=== PATIENT | female | born 1955 | race Caucasian/White ===

== ENCOUNTER → 2021-04-12 | Outpatient (CLI) | payer OTHER ==
[~2021-04-12] MED LIST: MULTI VITAMIN1 EACH PO; NOLVADEX20 MG PO; PROBIOTIC1 EAC7 PO
== END ==
LOC: LAB 07:50
PROVIDERS: ATTEND Student in an Organized Health Care Education/Training Program
DX: Z01.812 Encounter for preprocedural laboratory examination (principal); Z20.822 Contact with and (suspected) exposure to COVID-19

== ENCOUNTER → 2021-04-15 | Outpatient (CLI) | payer OTHER ==
[~2021-04-15] VITALS: Ht 165.1 cm; Wt 81.6 kg
--- NOTE | 2021-04-16 16:06 | PATH ---
[facility] [address] [place] [address] PATHOLOGY RPT PROCEDURE Name: MILA DICK Room #: REG NICK Sanches#: [id number] Admission: 04/15/21 Date of : 51 Discharge: Report #: [id number] Path Case #: [id number] [facility] Accession Number: [id number] . 01 Material submitted: . gastrointestinal site - RANDOM GASTRIC BIOPSY- R/O H. PYLORI . 01 Clinical history: . ESOPHAGOGASTRODUODENOSCOPY NAUSEA AND VOMITING, DIVERTICULOSIS GASTRITIS, HIATAL HERNIA . 02 Diagnosis: Gastric mucosa (random biopsies): - Mild chronic gastritis, mild activity, negative for dysplasia, negative for intestinal metaplasia, negative for Helicobacter-like organisms. (RITA:josep; 04/16/2021) QTP 04/16/2021 1231 Local . 02 Comment: IHC for H. pylori on A1: Negative (ISELAK:pit; 04/16/2021) . 02 Electronically signed: . Ramon Grimaldo MD, Pathologist NPI- [id number] . 01 Gross description: . The specimen is received in formalin, labeled "Mila Dick, random gastric BX rule out H. pylori ". Received are 5 segments of pale velasquez tissue ranging in size from 0.3 to 0.5 cm in maximum dimensions. The specimen is submitted entirely in cassette A1.([facility]; 04/15/2021) [facility] 04/15/2021 1658 Local . 02 Pathologist provided ICD-10: K29.50 . 02 CPT . 290233, [id number] Specimen Comment: A courtesy copy of this report has been sent to [phone], [phone] Specimen Comment: [id number] Specimen Comment: Report sent to / DR VALVERDE Performed at: [address] [id number] MD Taz Brito MD Phone: [phone] [address] [address] PATHOLOGY RPT PROCEDURE Name: MILA DICK Room #: REG CLTanya Sanches#: [id number] Admission: 04/15/21 Date of : 51 Discharge: Report #: [id number] Path Case #: [id number] Performed at: [address], [place] [id number] MD Ramon Grimaldo MD Phone: [phone]
== END | disposition home or self-care (01) ==
LOC: GI
PROVIDERS: ATTEND Internal Medicine Gastroenterology
DX: K57.80 Diverticulitis of intestine, part unspecified, with perforation and abscess without bleeding (principal); R10.13 Epigastric pain; R11.2 Nausea with vomiting, unspecified; K29.50 Unspecified chronic gastritis without bleeding; K44.9 Diaphragmatic hernia without obstruction or gangrene; K21.9 Gastro-esophageal reflux disease without esophagitis; F17.210 Nicotine dependence, cigarettes, uncomplicated; Z98.890 Other specified postprocedural states; Z79.899 Other long term (current) drug therapy; Z87.19 Personal history of other diseases of the digestive system; Z90.710 Acquired absence of both cervix and uterus; Z98.0 Intestinal bypass and anastomosis status; Z85.3 Personal history of malignant neoplasm of breast
CPT/HCPCS: 62110; 62900